=== PATIENT | male | born 1995 | race African-American/Black ===

== ENCOUNTER 2024-04-03 14:10 | Emergency (ER) | payer MEDICAID ==
[~2024-04-03] VITALS: Ht 170.2 cm; Wt 63.5 kg
[2024-04-03 14:26] VITALS: O2SAT 99
[2024-04-03 15:58] VITALS: BP 135/51; PULSE 40; RESP 16; TEMP 98.2
[2024-04-03] MEDS: KETOROLAC 30MG/ML VIAL IM ONE (15:58)
[2024-04-03] MEDS: ACETAMINOPHEN 325MG TABLET PO ONE (15:58)
[2024-04-03] MEDS ORDERED: NAPR-679 MT (18:06)
[2024-04-03] MEDS ORDERED: TOPUD MT (18:06)
== END 2024-04-03 22:11 | disposition home or self-care (01) ==
LOC: ER 14:26
DX: S02.609A Fracture of mandible, unspecified, initial encounter for closed fracture (principal); X58.XXXA Exposure to other specified factors, initial encounter; Y93.89 Activity, other specified; Y92.89 Other specified places as the place of occurrence of the external cause; Y99.8 Other external cause status
CPT/HCPCS: 70450; 70486; 96372; 99285; J1885; Z7610